=== PATIENT | female | born 1985 | race Two or more races ===

== ENCOUNTER 2024-04-09 11:44 | Outpatient (CLI) | payer OTHER | END 2024-04-09 11:46 | disposition home or self-care (01) | LOC: PRENATAL 11:44 | PROVIDERS: ATTEND Obstetrics & Gynecology Maternal & Fetal Medicine | DX: O36.80X0 Pregnancy with inconclusive fetal viability, not applicable or unspecified (principal); Z36.82 Encounter for antenatal screening for nuchal translucency; O09.529 Supervision of elderly multigravida, unspecified trimester; Z3A.13 13 weeks gestation of pregnancy ==

== ENCOUNTER 2024-06-04 13:34 | Outpatient (CLI) | payer OTHER | END 2024-06-04 13:36 | disposition home or self-care (01) | LOC: PRENATAL 13:34 | PROVIDERS: ATTEND Obstetrics & Gynecology Maternal & Fetal Medicine | DX: O44.00 Complete placenta previa NOS or without hemorrhage, unspecified trimester (principal); O09.529 Supervision of elderly multigravida, unspecified trimester; Z3A.21 21 weeks gestation of pregnancy ==

== ENCOUNTER → 2024-07-18 12:16 | Outpatient (CLI) | payer OTHER | END | disposition home or self-care (01) | LOC: PRENATAL 12:16 | PROVIDERS: ATTEND Obstetrics & Gynecology Maternal & Fetal Medicine | DX: O26.849 Uterine size-date discrepancy, unspecified trimester (principal); O09.529 Supervision of elderly multigravida, unspecified trimester; Z3A.28 28 weeks gestation of pregnancy ==

== ENCOUNTER 2024-08-31 13:48 | Outpatient (CLI) | payer OTHER | END 2024-08-31 13:49 | disposition home or self-care (01) | LOC: PRENATAL 13:48 | PROVIDERS: ATTEND Obstetrics & Gynecology Maternal & Fetal Medicine | DX: O26.849 Uterine size-date discrepancy, unspecified trimester (principal); O36.8199 Decreased fetal movements, unspecified trimester, other fetus; O09.529 Supervision of elderly multigravida, unspecified trimester; O32.9XX0 Maternal care for malpresentation of fetus, unspecified, not applicable or unspecified; Z3A.34 34 weeks gestation of pregnancy ==

== ENCOUNTER 2024-09-25 10:15 | Inpatient (IN) | payer OTHER ==
[~2024-09-25] VITALS: Ht 162.6 cm; Wt 102.1 kg
[2024-09-25] MEDS ORDERED: PRENATABS RX T1 EACH PO (12:38)
[2024-09-25 13:10] LABS: BASO % 0.4 % (0.1-1.2); EOS # 0.06 (0.04-0.54); EOS % 0.7 % (0.7-7.0); LYMPH # 1.61 (1.18-3.74); LYMPH % 17.5 % (19.3-53.1); MEAN PLATELET VOLUME 11.80 fl (9.4-12.4); MONO # 0.62 (0.24-0.82); MONO % 6.7 % (4.7-12.5); NEUT # 6.83 (1.56-6.13); NEUT % 74.4 % (34.0-71.1); RED CELL DISTRIBUTION WIDTH 14.0 % (11.6-14.4)
[2024-09-25 13:17] LABS: URINE APPEARANCE Clear; URINE BILIRRUBIN Negative (NEGATIVE); URINE BLOOD Small; URINE COLOR Yellow; URINE GLUCOSE Negative (NEGATIVE); URINE KETONE 15 (NEGATIVE); URINE LEUKOCYTE Trace; URINE NITRATE Negative; URINE PROTEIN Negative (NEGATIVE); URINE UROBILINOGEN 0.2 E.U./dl
[2024-09-25 13:22] LABS: URINE BACTERIA 472.6 uL (0.0-1933); URINE EPITHELIAL CELLS 48.5 uL (0.0-38.8); URINE RBC 42.8 uL (0.0-20.8); URINE WBC 20.1 uL (0.0-23.2)
[2024-09-25 13:30] LABS: INR 0.94
[2024-09-25 13:37] LABS: URINE CAST 0.29 uL (0.0-1.40)
[2024-09-25 14:04] LABS: ALT/SGPT 20.0 U/L (12-78); AST/SGOT 13.0 U/L (15-37); BILIRUBIN TOTAL 0.45 mg/dL (0.3-1.2); BUN CREA RATIO 18.0 (7.0-25.0); CREATININE SERUM 0.74 mg/dL (0.55-1.02); GFR 88.31; GLOBULINA 3.9 G/DL (2.4-3.5); GLUCOSE FASTING 80.0 mg/dL (65-100); OSMOLALITY SERUM 277.0 MOSM/KG (275-295)
[2024-10-05 05:54] VITALS: BP 123/81
[2024-10-05] MEDS ORDERED: CEFAZOLIN SODIUM 1,000 MG VIAL IV ONE (08:45)
[2024-10-05] MEDS ORDERED: ERYTHROMYCIN BASE OPHT 1GM EACH TUBE OP ONE (09:15)
[2024-10-05] MEDS ORDERED: OXYTOCIN 10 UNITS/ML VIAL IV ONE (09:30)
[2024-10-05] MEDS ORDERED: MORPHINE SULFATE 4 MG/ML CARTRIDGE IV PRN (12:30)
[2024-10-05] MEDS ORDERED: RINGERS SOLUTION,LACTATED 1,000 ML IV SCH (12:30)
[2024-10-05] MEDS ORDERED: CEFAZOLIN SODIUM 1,000 MG VIAL IV SCH (14:00)
[2024-10-05 14:15] VITALS: BP 129/77
[2024-10-05 17:48] VITALS: BP 119/75
[2024-10-05 23:44] VITALS: BP 102/68
[2024-10-06 01:28] LABS: BASO % 0.5 % (0.1-1.2); EOS # 0.03 (0.04-0.54); EOS % 0.3 % (0.7-7.0); LYMPH # 1.33 (1.18-3.74); LYMPH % 15.1 % (19.3-53.1); MEAN PLATELET VOLUME 11.50 fl (9.4-12.4); MONO # 0.61 (0.24-0.82); MONO % 6.9 % (4.7-12.5); NEUT # 6.76 (1.56-6.13); NEUT % 76.9 % (34.0-71.1); RED CELL DISTRIBUTION WIDTH 13.9 % (11.6-14.4)
[2024-10-06 03:00] VITALS: BP 104/67
[2024-10-06] MEDS ORDERED: ACETAMINOPHEN 500 MG GEL..CAP PO PRN (06:15)
[2024-10-06 08:00] VITALS: BP 119/79
[2024-10-06 16:30] VITALS: BP 119/83
[2024-10-07 01:37] VITALS: BP 119/82
[2024-10-07 08:38] VITALS: BP 139/87
[2024-10-07] MEDS ORDERED: IBUPROFEN800 MG PO (09:00)
== END 2024-10-07 12:12 | disposition home or self-care (01) | DRG 788 ==
LOC: OB/GYN 10-04 10:15 → O/R 10-05 08:56 → OB/GYN 10-05 12:48
PROVIDERS: ADMIT Specialist; ATTEND Specialist
PROC: 4A1HXCZ Monitoring of Products of Conception, Cardiac Rate, External Approach (ICD-10-PCS; 2024-10-05)
PROC: 10D00Z1 Extraction of Products of Conception, Low, Open Approach (ICD-10-PCS; principal; 2024-10-05 07:00)
DX: O32.1XX0 Maternal care for breech presentation, not applicable or unspecified (principal); Z3A.39 39 weeks gestation of pregnancy; Z37.0 Single live birth